=== PATIENT | female | born 1935 | race Caucasian/White ===

== ENCOUNTER 2016-11-22 18:47 | Observation (INO) ==
[2016-11-22] MEDS ORDERED: *HR* HYDROcodone/Acet 5/325 mg TABLET PO ONE (20:18)
--- NOTE | 2016-11-22 20:21 | Emergency Department Note ---
Disposition Clinical Impression: Intractable low back pain Disposition: Admitted As Inpatient Condition: Good Referrals: NO,PCP [Primary Care Provider] - Forms: ED Satisfaction Letter Time of Disposition: 20:28 Back Pain HPI - General Chief Complaint: ED Back Pain/Injury Stated Complaint: "major pain" back pain Source: patient, family Limitations: no limitations - History of Present Illness HPI Narrative: Patient presents to the emergency department for evaluation of lower back pain. She reports a history of chronic back pain no states over the past week she has had significantly increasing back pain without any obvious traumatic injury. She states that it occurs with certain movements and makes it difficult for her to complete activities of daily living. She describes as a sharp pain without radicular symptoms. She denies associated numbness tingling weakness of the extremities. She denies groin or saddle anesthesia. She denies incontinence. Denies chest or abdominal pain. She has been seen at 2 emergency departments in the past week to include obtaining a plain film x-ray and CAT scan without abnormalities. She has discussed the case with the primary care physician and has also been in discussion with her orthopedic physician. She has had no new symptoms today, she presents tonight secondary to the fact that her pain precludes her from living at home by herself at this time. - Related Data Home Medications Medication Instructions Recorded Confirmed Azelastine 0.1% Nasal [place] 2 spray IN DAILY PRN 11/22/16 11/22/16 [Astelin] Carvedilol 3.125 mg PO DAILY 11/22/16 11/22/16 Cholestyramine (with Sugar) 1 scoop PO DAILY 11/22/16 11/22/16 [Cholestyramine Bulk Powder] Cyclobenzaprine [Flexeril] 10 mg PO TID 11/22/16 11/22/16 Estrogens, Conjugated [Premarin] 1.25 mg PO DAILY 11/22/16 11/22/16 Furosemide [Lasix] 20 mg PO DAILY 11/22/16 11/22/16 Gabapentin [Neurontin] 300 mg PO TID 11/22/16 11/22/16 HYDROmorphone [Dilaudid] 4 mg PO QID 11/22/16 11/22/16 Magnesium Oxide [Magnesium] 400 mg PO DAILY 11/22/16 11/22/16 Meclizine HCl [Verticalm] 25 mg PO TID PRN 11/22/16 11/22/16 Nitroglycerin [Nitrostat] 0.4 mg SL AD PRN 11/22/16 11/22/16 Ondansetron HCl 8 mg PO Q8H PRN 11/22/16 11/22/16 Oxybutynin [Ditropan] 5 mg PO AD PRN 11/22/16 11/22/16 Potassium Chloride [Klor-Con 10] 10 meq PO DAILY 11/22/16 11/22/16 SUMAtriptan succinate [Imitrex] 25 mg PO AD PRN 11/22/16 11/22/16 Simvastatin [Zocor] 10 mg PO HS 11/22/16 11/22/16 Warfarin [Coumadin] 2 mg PO AD 11/22/16 11/22/16 Allergies Allergy/AdvReac Type Severity Reaction Status Date / Time levofloxacin [From Levaquin] Allergy Gastrointestinal Verified 11/22/16 18:52 Upset prochlorperazine Allergy Shakiness Verified 11/22/16 18:52 [From Compazine] tramadol Allergy Gastrointestinal Verified 11/22/16 18:52 Upset Constitutional: Denies: fever, chills Eyes: Denies: vision change Cardiovascular: Denies: chest pain, palpitations, dyspnea on exertion Respiratory: Denies: cough, dyspnea Gastrointestinal: Denies: abdominal pain, nausea, vomiting Genitourinary: Denies: urgency, dysuria, frequency, hematuria Musculoskeletal: Reports: back pain. Denies: neck pain Integumentary: Denies: rash Neurological: Denies: headache, weakness, numbness, paresthesias Past Medical History - Past Medical History Medical history: Reports: arthritis, atrial fibrillation, CHF, DVT, GERD, migraine, osteoporosis, valvular heart disease Surgical history: Reports: non-contributory Psychiatric history: Reports: no psych history - Social History Smoking Status: Never smoker Smokeless Tobacco Status: No Alcohol use: Reports: none Drug use: Reports: none Physical Exam - General Limitations: no limitations General appearance: alert, in no apparent distress - Eye Eye exam: Present: normal appearance, PERRL, EOMI - ENT ENT exam: normal exam - Neck Neck exam: Present: normal inspection. Absent: tenderness - Respiratory Respiratory exam: Present: normal lung sounds bilaterally - Cardiovascular Cardiovascular exam: Present: regular rate, normal heart sounds - Abdominal Exam Abdominal exam: Present: soft, Non-Tender, normal bowel sounds - Extremities Exam Extremities exam: Present: normal inspection, full ROM, normal capillary refill. Absent: tenderness, pedal edema, calf tenderness - Expanded Lower Extremity Exam Neurovascular/Tendon exam: Present: normal capillary refill. Absent: pulse deficit, motor deficit, sensory deficit, tendon deficit - Back Exam Back exam: Present: normal inspection, paraspinal tenderness (Diffuse lumbar paraspinal musculature which reproduces the pain that she is experiencing). Absent: CVA tenderness (R), CVA tenderness (L), vertebral tenderness - Neurological Exam Neurological exam: Present: alert, oriented X3, CN II-XII intact, reflexes normal. Absent: motor sensory deficit - Psychiatric Psychiatric exam: Present: normal affect, normal mood - Skin Skin exam: Present: warm, dry, intact, normal color. Absent: rash Course Vital Signs Temperature 98.3 F 11/22/16 18:55 Pulse Rate 68 11/22/16 18:55 Respiratory Rate 16 11/22/16 18:55 Blood Pressure 130/64 11/22/16 18:55 O2 Sat by Pulse Oximetry 94 11/22/16 18:55 Temperature 98.3 F 11/22/16 18:55 Pulse Rate 68 11/22/16 18:55 Respiratory Rate 16 11/22/16 18:55 Blood Pressure 130/64 11/22/16 18:55 O2 Sat by Pulse Oximetry 94 11/22/16 18:55 Back Pain/Injury - MDM Narrative Medical decision making narrative: Patient presents with an exacerbation of her chronic back pain with inability to care for herself at home. She has no new traumatic injury. She recently had a CT of the lumbar spine and reports that this is negative for any acute abnormality. There is no indication of cauda equina syndrome spinal cord abscess or hematoma. There is no indication of an intra-abdominal or aortic process. Patient will be admitted to the hospitalist service for intractable back pain for PT OT and healthcare social worker consult
[2016-11-22] MEDS ORDERED: Naloxone 0.4 MG/ML INJ IVP PRN (20:29)
[2016-11-22 20:50] LABS: Basophils % 0.2 %; Eosinophils % 0.5 %; Hematocrit 34.3 % (35.3-44.9); Hemoglobin 11.1 g/dL (11.5-15.4); Immature Granulocytes % 0.3 % (0-4); Lymphocytes # 2.8 K/mcL (0.6-4.6); Lymphocytes % 41.8 %; Mean Corpuscular HGB Conc 32.4 g/dL (31.6-35.5); Mean Corpuscular Hemoglobin 32.1 pg (28.0-33.3); Mean Corpuscular Volume 99.1 fL (83.0-100.0); Mean Platelet Volume 8.5 fL (9.4-12.4); Monocytes # 0.6 K/mcL (0.0-1.3); Monocytes % 9.1 %; Neutrophils # 3.2 K/mcL (1.6-8.9); Platelet Count 218 K/mcL (140-400); Red Blood Count 3.46 M/mcL (3.82-4.97); Red Cell Distribution Width 15.2 % (11.5-14.5); Segmented Neutrophils % 48.1 %
[2016-11-22 20:55] LABS: INR 2.9
[2016-11-22 21:10] LABS: BUN/Creatinine Ratio 19 (6-26); Blood Urea Nitrogen 18 mg/dL (7-20); Calcium 9.8 mg/dL (8.6-10.8); Carbon Dioxide 24 mEq/L (19-29); Chloride 101 mEq/L (98-109); Glucose 96 mg/dL (70-99); Osmolality,Calculated 286 (280-300); Potassium 3.7 mEq/L (3.5-4.5); Sodium 137 mEq/L (136-145); eGFR For African Americans > 60 (> 60); eGFR For Non-African Americans 55 (> 60)
[2016-11-22] MEDS ORDERED: *HR* HYDROmorphone 2 MG TABLET PO PRN (22:23)
[2016-11-22] MEDS: *HR* Warfarin 2 MG TABLET PO SCH (22:27)
[2016-11-22] MEDS: Gabapentin 300 MG CAPSULE PO SCH (22:27)
[2016-11-22] MEDS: *HR* HYDROmorphone 2 MG TABLET PO SCH (23:21)
[2016-11-23] MEDS: Cholestyramine 4 GM POWD.PACK PO SCH ×3 (01:08→16:10)
[2016-11-23] MEDS: *HR* HYDROmorphone 2 MG TABLET PO SCH ×3 (07:48→22:39)
[2016-11-23] MEDS: Gabapentin 300 MG CAPSULE PO SCH ×3 (09:29→22:40)
[2016-11-23] MEDS: Furosemide 20 MG TABLET PO SCH (09:29)
--- NOTE | 2016-11-23 22:30 | Internal Med History&Physical ---
Date of Encounter: 11/23/16 Time of Encounter: 22:15 Assessment and Plan (1) Intractable low back pain Current visit: Yes Status: Acute Pain interferes with the patient's function she is on Dilaudid 4 mg every 6 hours and [place] for breakthrough pain. We will continue and observe to see if her back will ease up as she gets assistance with activities of daily living. (2) Valvular heart disease Current visit: Yes Status: Chronic Continue Coumadin Internal Medicine - H&P: HPI Admitted From: Home Plans for Post Hospital Care: Home (24 hour assistance) History of present illness: Ms. Carreon is a 81 year old female presents to emergency room with intractable pain of her lower back. She has a history of chronic lower back pain and laminectomy. Apparently 2 weeks ago she started going that was getting worse. She saw her physician who increased her from [place] 10 hydromorphone 4. She reports getting her hair done and after she had laid back to have her hair into the sink she try to get out and her back felt like locked up on her. Dad called the squad and took her to the [facility] emergency room. Data x-ray did not find any fracture and sent her home. She went to a correction self-pay for 4 days on respite. Over that period time her back eased up and she was able to move around with assistance and she stay with her daughter. Daughter she stay with also has a who also needs assistance so she is trying to take care of him also. Apparently a second sister works 2 jobs and has not no help she went Friday to Dr. Travis, a specialist's head [facility] clinic. We will order a CT scan she reports her laying down flat the CT scan she could not get up. She had to be assisted to wheelchair. She was brought to our emergency room with intractable pain unable to do activities of daily living at her house. When ER doctor called me I was concerned about them aching that she had a meeting criteria he contacted that management apparently she does not meet any criteria. She was admitted observation hoping that her back with these up until she can go home. When I saw her today which is next day her back has not eased up but still very uncomfortable. Her pain is about 8 /10 -> 6/10 with dilaudid. Any movement worsens it and better without movement. Her radicular pain is improved with gabapentin. The pain medicine helps somewhat but she still Function on her own. She needed assistance with activities daily living. We had a long conversation because of their frustration level about her not meeting the admitting criteria. During the weekends does manager social services cannot talk to anyone representing Medicare to see if there is no exception. I do not believe she would need an exception. If she can be taken care of in the less intense environment that is what they would want her to do. Discussed about sign her house she has not been able to she reports. However they would suggest that she did go down low enough from [place]. Explained about real estate conditions improvements in the house but not square footage. I do not feel like she needs to go home if she cannot take care of herself but that does not mean that she meets admitting criteria. She reports being admitted in the past for urinary tract infection. Most likely she had congestive heart failure exacerbation out whole prior to admission. She is not on oxygen at home. She reports any movement makes her back spasm makes it worse. She denies any fevers chills nausea vomiting chest pain shortness of breath headache dizziness rest review of systems negative. Addressed concerns answered questions. Past Med Surg Social Fam HX - Past Medical History Medical history: arthritis, atrial fibrillation, CHF, DVT, GERD, migraine, osteoporosis, valvular heart disease, other (Microscopic colitis, chronic lower back pain) Psychiatric history: no psych history - Past Surgical History Surgical History: appendectomy, cataract (Bilaterally), cholecystectomy, hip replacement (Bilateral), knee replacement (Left), orthopedic, other (Lumbar laminectomy arthrodesis), AMBERLY/BSO, pacemaker - Social History Smoking Status: Never smoker Smokeless Tobacco Status: No Alcohol use: none Drug use: none - Family History Father Living Status: (PR) Hx Family Cardiac Disorders: Yes Mother Living Status: (Stroke) Internal Medicine - H&P: Meds Azelastine 0.1% Nasal [place] [Astelin] 2 spray IN DAILY PRN 11/22/16 [History] Carvedilol 3.125 mg PO DAILY 11/22/16 [History] Cholestyramine (with Sugar) [Cholestyramine Bulk Powder] 1 scoop PO DAILY [History] Cyclobenzaprine [Flexeril] 10 mg PO TID 11/22/16 [History] Estrogens, Conjugated [Premarin] 1.25 mg PO DAILY 11/22/16 [History] Furosemide [Lasix] 20 mg PO DAILY 11/22/16 [History] Gabapentin [Neurontin] 300 mg PO TID 11/22/16 [History] HYDROmorphone [Dilaudid] 4 mg PO QID 11/22/16 [History] Magnesium Oxide [Magnesium] 400 mg PO DAILY 11/22/16 [History] Meclizine HCl [Verticalm] 25 mg PO TID PRN 11/22/16 [History] Nitroglycerin [Nitrostat] 0.4 mg SL AD PRN 11/22/16 [History] Ondansetron HCl 8 mg PO Q8H PRN 11/22/16 [History] Oxybutynin [Ditropan] 5 mg PO AD PRN 11/22/16 [History] Potassium Chloride [Klor-Con 10] 10 meq PO DAILY 11/22/16 [History] SUMAtriptan succinate [Imitrex] 25 mg PO AD PRN 11/22/16 [History] Simvastatin [Zocor] 10 mg PO HS 11/22/16 [History] Warfarin [Coumadin] 2 mg PO AD 11/22/16 [History] Allergies levofloxacin [From Levaquin] Allergy (Verified 11/22/16 18:52) Gastrointestinal Upset prochlorperazine [From Compazine] Allergy (Verified 11/22/16 18:52) Shakiness tramadol Allergy (Verified 11/22/16 18:52) Gastrointestinal Upset All Systems PM: A 10-system review of systems was performed and is negative for pertinent findings except as documented above in the HPI. - Constitutional Vitals: Temp Pulse Resp BP Pulse Ox 98.2 F 69 18 111/61 94 11/23/16 18:29 11/23/16 18:29 11/23/16 18:29 11/23/16 18:29 11/23/16 18:29 - Head Head exam: Present: atraumatic, normocephalic - Eye Eye exam: Present: PERRL, conjuntiva pink, sclera anicteric Pupils: Present: PERRL - Neck Neck exam general surgery: Present: supple, trachea midline. Absent: lymphadenopathy - Respiratory Respiratory exam: Present: CTAB. Absent: accessory muscle use, rales, rhonchi, wheezes - Cardiovascular Cardiovascular exam: Present: RRR, +S1, +S2. Absent: diastolic murmur, gallop, rubs, systolic murmur - GI/Abdominal GI/Abdominal exam: Present: normal bowel sounds, soft, tenderness (Slight diffuse tenderness), no peritoneal signs. Absent: distended - Extremities Exam Extremities exam: Present: warm. Absent: calf tenderness, cyanotic, pedal edema - Back Exam Back exam: Present: paraspinal tenderness (Lumbar region) - Neurological Exam Neurological exam: Present: CN II-XII intact, oriented X3, no focal deficits. Absent: facial droop, speech deficit - Skin Skin exam: Present: dry, intact Internal Med - H&P Results - Labs CBC & Chem 7: 11/22/16 20:43 11/22/16 20:43
[2016-11-23] MEDS: *HR* Warfarin 2 MG TABLET PO SCH (22:40)
[2016-11-23] MEDS ORDERED: *HR* Warfarin 1 MG TABLET PO ONE (23:35)
[2016-11-24] MEDS: *HR* HYDROmorphone 2 MG TABLET PO SCH ×4 (00:50→18:41)
[2016-11-24] MEDS: *HR* HYDROcodone/Acet 5/325 mg TABLET PO PRN ×4 (04:23→23:35)
[2016-11-24 05:11] LABS: Prothrombin Time 33.6 Seconds (9.4-12.1)
[2016-11-24] MEDS: Cholestyramine 4 GM POWD.PACK PO SCH ×2 (07:52→16:16)
[2016-11-24] MEDS: Furosemide 20 MG TABLET PO SCH (10:11)
[2016-11-24] MEDS: Gabapentin 300 MG CAPSULE PO SCH ×3 (10:11→20:52)
--- NOTE | 2016-11-24 11:15 | Internal Med Progress Note ---
Date of Encounter: 11/24/16 Time of Encounter: 11:10 - Assessment and plan (1) Intractable low back pain Current Visit: Yes Status: Acute Assessment and plan: Continue observation lauded and [place] consult social service. (2) Valvular heart disease Current Visit: Yes Status: Chronic Assessment and plan: Stable - Time Spent With Patient less than 15 minutes - Subjective Interval history: 81-year-old female into the emergency room with intractable lower back pain. She is unable to do activities of daily living. She was admitted for observation to see if her back when he is up. It did not ease up for an sufficiently for her to go home there was a long discussion about observation versus Hospital admission, the criteria, the impact. She believes that if the CT scan results can be reviewed that she might meet admission criteria. She developed a cough going home and would like to social worker masters involved to see what her options are. Back pain is the same she reports taking Dilaudid and [place] and she was able to get up to chair. She denies any chest pain shortness breath or other concerns. Her other chronic problems all stable. - Constitutional Vitals: Temp Pulse Resp BP Pulse Ox 97.5 F L 72 16 105/62 96 11/24/16 07:47 11/24/16 07:47 11/24/16 07:47 11/24/16 07:47 11/24/16 07:47 Exam: General: Alert and oriented, no acute distress Lungs: Clear to auscultation bilaterally without wheezing or crackles Heart: Regular rate and rythms without murmer or rubs Abdomen: Soft, nontender, Internal Medicine: Result - Labs CBC & Chem 7: 11/22/16 20:43 11/22/16 20:43 - ABG Interpretation ABG results: PT/INR, D-dimer PT 33.6 Seconds (9.4-12.1) H 11/24/16 04:53 Consult Discharge Plan - Plan Referrals: NO,PCP [Primary Care Provider] - 1 week
[2016-11-24] MEDS ORDERED: *HR* Warfarin 2 MG TABLET PO SCH (18:00)
[2016-11-25] MEDS: *HR* HYDROmorphone 2 MG TABLET PO SCH ×3 (00:47→12:43)
[2016-11-25] MEDS: Gabapentin 300 MG CAPSULE PO SCH ×2 (09:28→16:23)
[2016-11-25] MEDS: Furosemide 20 MG TABLET PO SCH (09:28)
[2016-11-25] MEDS: Cholestyramine 4 GM POWD.PACK PO SCH ×2 (09:29→16:26)
[2016-11-25 14:39] VITALS: BP 125/67
--- NOTE | 2016-11-25 14:48 | Discharge Summary ---
Date of Encounter: 11/25/16 Time of Encounter: 14:25 - Discharge Diagnosis (1) Intractable low back pain Priority: Primary Status: Acute - Discharge Medications Home Medications: Azelastine 0.1% Nasal [place] [Astelin] 2 spray IN DAILY PRN 11/22/16 [History] Carvedilol 3.125 mg PO DAILY 11/22/16 [History] Cholestyramine (with Sugar) [Cholestyramine Bulk Powder] 1 scoop PO DAILY [History] Cyclobenzaprine [Flexeril] 10 mg PO TID 11/22/16 [History] Estrogens, Conjugated [Premarin] 1.25 mg PO DAILY 11/22/16 [History] Furosemide [Lasix] 20 mg PO DAILY 11/22/16 [History] Gabapentin [Neurontin] 300 mg PO TID 11/22/16 [History] HYDROmorphone [Dilaudid] 4 mg PO QID 11/22/16 [History] Magnesium Oxide [Magnesium] 400 mg PO DAILY 11/22/16 [History] Meclizine HCl [Verticalm] 25 mg PO TID PRN 11/22/16 [History] Nitroglycerin [Nitrostat] 0.4 mg SL AD PRN 11/22/16 [History] Ondansetron HCl 8 mg PO Q8H PRN 11/22/16 [History] Oxybutynin [Ditropan] 5 mg PO AD PRN 11/22/16 [History] Potassium Chloride [Klor-Con 10] 10 meq PO DAILY 11/22/16 [History] SUMAtriptan succinate [Imitrex] 25 mg PO AD PRN 11/22/16 [History] Simvastatin [Zocor] 10 mg PO HS 11/22/16 [History] Warfarin [Coumadin] 3 mg PO DAILY 11/22/16 [History] Allergies/Adverse Reactions: Allergies levofloxacin [From Levaquin] Allergy (Verified 11/22/16 18:52) Gastrointestinal Upset prochlorperazine [From Compazine] Allergy (Verified 11/22/16 18:52) Shakiness tramadol Allergy (Verified 11/22/16 18:52) Gastrointestinal Upset Date of admission: 11/22/16 20:57 Primary care physician: Dr. Bhaskar Valle Consults: 11/22/16 22:11 Consult to Associate Professor Of Automation [CONS] Routine Reason for SW Consult: Intractable pain. 11/23/16 06:13 Consult to Occupational Therapy [CONS] Routine Comment: Evaluate, develop and implement POC Reason for Consult: Difficulty caring for self in home. Consult to Physical Therapy [CONS] Routine Comment: Evaluate, develop and implement POC Reason for Consult: Difficulty caring for self in home. - Patient Status Disposition: Home Health Service Condition: Good Functional capacity at discharge: uses cane/walker Overall status at discharge: patient is progressing back to baseline - Discharge Instructions Follow Up With: NO,PCP [Primary Care Provider] - 1 week - Diet and Activity Activity: resume usual activities as tolerated Diet: advance to your usual diet Hospital course: Ms. Carreon is a 81 year old female who presented to the emergency room with intractable low back pain. She has had pain since 2010 with laminectomy surgery and fusion of L2-5 that year. She reported the pain worsened over the past few days. Lumbar spine CT scan was ordered by her wood barker in [place] at a November 21 office visits and was done at [facility] 2016. Initial orders were written by the emergency room physician. Dr. Matthews saw her November 23 and performed the history and physical. I assumed her care on November 25. I reviewed the CT report with the patient and with Dr. Travis the afternoon of November 25. Dr. Travis did not feel there was an acute process that required immediate referral to a spine surgeon. I explained to the patient that she did not meet criteria for inpatient admission. I recommended she take additional pain medication and follow with Dr. Chan and/ or her PCP as soon as an appointment could be made. She will have resumption of home health services. She was able to ambulate in the hallway a satisfactory distance with assistance from the therapist. As per Dr. Travis's request she will have LS spine with flexion and extension views done prior to discharge. He will review these with her at his follow-up office visit. - Time Spent with Patient Total time spent providing and/or coordinating discharge services: - Constitutional Vitals: Temp Pulse Resp BP Pulse Ox 97.6 F 71 16 99/61 96 11/25/16 11:00 11/25/16 11:19 11/25/16 11:19 11/25/16 11:19 11/25/16 11:19
--- NOTE | 2016-11-25 14:57 | Physician Discharge Referral ---
Home Health/Hosp Referral Info Transfer to: Home Health Attending Provider: Willis Provider in Charge Post Discharge: PCP (Dr. Bhaskar Valle) - Diagnosis (1) Intractable low back pain Priority: Primary Status: Acute - Respiratory Orders Smoking Cessation: Smoking cessation has been advised. For more information, call the [place] Tobacco Quit Line at 9-509-OGYU-NOW. - Diet/Nutrition Diet/Nutrition Orders: Regular - Activity Activity Orders: Ambulate - Services Needed Following services are medically necessary services: Nursing, Home Health Aide, Physical Therapy, Occupational Therapy - Transfer Medications Home Medications: Azelastine 0.1% Nasal [place] [Astelin] 2 spray IN DAILY PRN 11/22/16 [History] Carvedilol 3.125 mg PO DAILY 11/22/16 [History] Cholestyramine (with Sugar) [Cholestyramine Bulk Powder] 1 scoop PO DAILY [History] Cyclobenzaprine [Flexeril] 10 mg PO TID 11/22/16 [History] Estrogens, Conjugated [Premarin] 1.25 mg PO DAILY 11/22/16 [History] Furosemide [Lasix] 20 mg PO DAILY 11/22/16 [History] Gabapentin [Neurontin] 300 mg PO TID 11/22/16 [History] HYDROmorphone [Dilaudid] 4 mg PO QID 11/22/16 [History] Magnesium Oxide [Magnesium] 400 mg PO DAILY 11/22/16 [History] Meclizine HCl [Verticalm] 25 mg PO TID PRN 11/22/16 [History] Nitroglycerin [Nitrostat] 0.4 mg SL AD PRN 11/22/16 [History] Ondansetron HCl 8 mg PO Q8H PRN 11/22/16 [History] Oxybutynin [Ditropan] 5 mg PO AD PRN 11/22/16 [History] Potassium Chloride [Klor-Con 10] 10 meq PO DAILY 11/22/16 [History] SUMAtriptan succinate [Imitrex] 25 mg PO AD PRN 11/22/16 [History] Simvastatin [Zocor] 10 mg PO HS 11/22/16 [History] Warfarin [Coumadin] 3 mg PO DAILY 11/22/16 [History] Allergies/Adverse Reactions: Allergies levofloxacin [From Levaquin] Allergy (Verified 11/22/16 18:52) Gastrointestinal Upset prochlorperazine [From Compazine] Allergy (Verified 11/22/16 18:52) Shakiness tramadol Allergy (Verified 11/22/16 18:52) Gastrointestinal Upset Certification: Further, I certify that my clinical findings support that this patient is homebound (i.e. 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
[2016-11-25] MEDS: *HR* HYDROcodone/Acet 5/325 mg TABLET PO PRN (16:23)
== END 2016-11-25 18:11 | disposition home health service (06) ==
LOC: EMEROOPIK 18:47 → INPPIK 18:47
PROVIDERS: ADMIT Internal Medicine; ATTEND Internal Medicine